=== PATIENT | male | born 1960 | race Two or more races ===

== ENCOUNTER → 2017-10-11 | Outpatient (CLI) | payer OTHER | END | disposition home or self-care (01) | LOC: PPH VACUNA 16:27 | DX: Z23 Encounter for immunization (principal) ==

== ENCOUNTER → 2020-01-04 | Outpatient (CLI) | payer OTHER ==
[~2020-01-04] MED LIST: CILOXAN5 ML OP
== END | disposition home or self-care (01) ==
LOC: OFIC 805 08:34
DX: H93.13 Tinnitus, bilateral (principal); H61.23 Impacted cerumen, bilateral

== ENCOUNTER 2020-04-22 06:45 | Day surgery (SDC) | payer OTHER | END 2020-04-22 13:00 | disposition home or self-care (01) | LOC: AMB-ENDOS 06:45 | PROVIDERS: ATTEND Surgery | DX: K57.32 Diverticulitis of large intestine without perforation or abscess without bleeding (principal); Z12.11 Encounter for screening for malignant neoplasm of colon ==

== ENCOUNTER 2020-10-07 18:31 | Emergency (ER) | payer OTHER ==
[~2020-10-07] VITALS: Ht 175.3 cm; Wt 79.4 kg
[2020-10-07] MEDS ORDERED: CLONAZEPAM1 M1 PO (18:44)
== END 2020-10-07 23:15 | disposition home or self-care (01) ==
LOC: ER 18:31
DX: K11.21 Acute sialoadenitis (principal); R59.0 Localized enlarged lymph nodes

== ENCOUNTER → 2021-11-04 07:45 | Outpatient (CLI) | payer OTHER ==
[~2021-11-04 07:45] MED LIST changes: +CLONAZEPAM1 M1 PO
== END | disposition home or self-care (01) ==
LOC: LAB 07:45
PROVIDERS: ATTEND Internal Medicine
DX: U07.1 COVID-19 (principal); B34.1 Enterovirus infection, unspecified

== ENCOUNTER 2021-11-04 07:46 | Outpatient (CLI) | payer OTHER | END 2021-11-04 07:47 | disposition home or self-care (01) | LOC: NUCLEAR 07:46 | DX: I10 Essential (primary) hypertension (principal) ==

== ENCOUNTER 2022-03-03 11:20 | Outpatient (CLI) | payer OTHER | END 2022-03-03 12:05 | disposition home or self-care (01) | LOC: MRI 11:20 | DX: S80.01XA Contusion of right knee, initial encounter (principal) | CPT/HCPCS: 73722 ==

== ENCOUNTER 2022-03-11 10:44 | Outpatient (CLI) | payer OTHER | END 2022-03-11 10:58 | disposition home or self-care (01) | LOC: RAD 10:44 | DX: S83.241A Other tear of medial meniscus, current injury, right knee, initial encounter (principal); M25.561 Pain in right knee ==

== ENCOUNTER 2022-04-01 08:01 | Outpatient (CLI) | payer OTHER | END 2022-04-01 08:08 | disposition home or self-care (01) | LOC: RAD 08:01 | DX: S83.241A Other tear of medial meniscus, current injury, right knee, initial encounter (principal) ==

== ENCOUNTER 2022-11-02 14:50 | Outpatient (CLI) | payer OTHER | END 2022-11-02 14:59 | disposition home or self-care (01) | LOC: RAD 14:50 | DX: M25.561 Pain in right knee (principal) ==

== ENCOUNTER 2023-03-24 16:19 | Outpatient (CLI) | payer OTHER | END 2023-03-24 16:29 | disposition home or self-care (01) | LOC: RAD 16:19 | DX: M25.561 Pain in right knee (principal) ==